=== PATIENT | male | born 1985 | race Caucasian/White ===

== ENCOUNTER → 2020-08-26 18:29 | Outpatient (CLI) | payer MEDICAID, SELFPAY ==
[2020-08-26 20:09] LABS: AST(SGOT) 19 U/L (15-37); Alanine Aminotransfer ALT/SGPT 30 U/L (16-61); Albumin, Serum 4.2 g/dL (3.2-5.0); Alkaline Phosphatase 62 U/L (45-117); Bilirubin, Direct 0.15 mg/dL (0.00-0.30); Globulin 3.7 g/dL (2.2-4.2); Protein, Total 7.9 g/dL (6.4-8.2)
[2020-08-27 08:32] LABS: Hepatitis B Surface Antigen Non-Reactive (Nonreactive)
[2020-08-27 08:34] LABS: Hepatitis C Antibody REACTIVE (Nonreactive)
== END ==
DX: R63.0 Anorexia (principal); R53.81 Other malaise; R11.0 Nausea
CPT/HCPCS: 36415; 80076; 86803; 87340; 87521